=== PATIENT | male | born 1955 | race American Indian/Alaskan Native ===

== ENCOUNTER 2022-04-13 12:10 | Outpatient (CLI) | payer OTHER ==
--- NOTE | 2022-04-13 14:53 | XRay Report ---
LEFT TIBIA-FIBULA 2 VIEW(S) INDICATION / CLINICAL INFORMATION: Z02.71 DISABILITY DETERMINATION COMPARISON: None available. FINDINGS: BONES / JOINT(S): No acute fracture or subluxation. 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 SOFT TISSUES: No significant abnormality. ADDITIONAL FINDINGS: None. Signer Name: Alvin Mills DO Signed: 04/13/2022 2:49 PM Workstation Name: [id number]
== END 2022-04-13 12:11 | disposition home or self-care (01) ==
LOC: XRAY 12:10
PROVIDERS: ATTEND Internal Medicine
DX: M17.12 Unilateral primary osteoarthritis, left knee (principal)